=== PATIENT | female | born 1985 | race Hispanic/Latino ===

== ENCOUNTER 2018-08-04 01:11 | Inpatient (IN) | payer OTHER ==
[2018-08-04] MEDS ORDERED: Lactated Ringer's 1,000 ML IV ONE (01:45)
[2018-08-04] MEDS ORDERED: Lactated Ringer's 1,000 ML IV SCH ×3 (01:45→07:58)
[2018-08-04] MEDS ORDERED: Betamethasone Soluspan 30 mg/5mL Inj Susp IM ONE ×2 (01:45→07:58)
[2018-08-04 01:47] VITALS: BMI 31.7
[2018-08-04] MEDS ORDERED: ceFAZolin 2 GM in Sodium Chloride 0.9% 100 ML IVPB ONE (01:52)
[2018-08-04] MEDS ORDERED: Oxytocin 30 UNIT 30 UNITS/500 ML BAG IV ONE (01:52)
[2018-08-04] MEDS ORDERED: OXYTOCIN/0.9 % NS 20 UNIT/1,000 ML BAG IV SCH (02:00)
[2018-08-04 02:04] LABS: BASO # 0.1 K/uL (0.0-0.2); BASO % 0.6 % (0.0-2.0); EOS # 0.2 K/uL (0.0-0.7); EOS % 1.3 % (0.0-4.0); HEMOGLOBIN 13.2 g/dL (12.0-16.0); LYMPH # 2.9 K/uL (1.0-4.3); LYMPH % 20.8 % (20.0-40.0); MEAN CELL VOLUME 90.1 fl (81.0-99.0); MEAN CORPUSCULAR HEMOGLOBIN 30.2 pg (27.0-31.0); MEAN CORPUSCULAR HGB CONC 33.5 g/dL (33.0-37.0); MONO # 0.9 K/uL (0.0-0.8); MONO % 6.2 % (0.0-10.0); NEUT # 9.8 K/uL (1.8-7.0); NEUT % 71.1 % (50.0-75.0); RBC 4.38 Mil/uL (3.80-5.20); RED CELL DISTRIBUTION WIDTH 13.3 % (11.5-14.5); WHITE BLOOD COUNT 13.7 K/uL (4.8-10.8)
[2018-08-04] MEDS ORDERED: Propofol 10 mg/ml Inj (20 ML) ONE (02:11)
[2018-08-04] MEDS ORDERED: Ketamine 50 mg/ml Inj (10 ml) ONE (02:11)
[2018-08-04] MEDS ORDERED: Midazolam 2 MG/2 ML VIAL ONE (02:38)
[2018-08-04] MEDS ORDERED: Succinylcholine Chloride 20 mg/ml Syr (5 ml) IV ONE (02:38)
[2018-08-04] MEDS ORDERED: Morphine 1 mg/ml preservative-free Inj(Duramorph) ONE (02:40)
[2018-08-04] MEDS ORDERED: Rocuronium 10 mg/ml (5 ml) ONE (02:40)
[2018-08-04] MEDS ORDERED: Dexamethasone 4 mg/1 ml ONE (03:02)
[2018-08-04] MEDS ORDERED: Oxycodone/Acetaminophen 5/325 mg Tab PO PRN ×5 (03:23→07:58)
--- NOTE | 2018-08-04 03:34 | OBHP ---
Datetime: 08/04/2018 03:31 IP Adm Impression: , intrauterine IP Admit Plan: Admit to unit; Initiate Section protocol Extremities - PN: Normal Abdomen - PN: Normal Back - PN: Normal Lungs - PN: Normal Heart - PN: Normal Neurologic - PN: Normal General - PN: Normal FHR - Baseline A Provider: 130's Contraction Comments Provider: Q2 Vital Signs Provider: Reviewed IP Indication for Induction: Not Applicable IP Chief Complaint: Vaginal bleeding NICHD Variability Prov Fetus A: Moderate 6-25bpm NICHD Decel Fetus A IP Provider: None Datetime: 08/04/2018 01:55 Admit Comment, IP Provider: 33 y/o , 35.1 wks with HUBERT of 09/07/18 presents to [facility] with vaginal bleeding. Patient reports H/O complete placenta previa and follows up with [facility]. Reports bright red vaginal bleeding started 12.45 AM today and has been bleeding PV since than, Repo rts feeling less FM since than. Unsure about ROM. Denies dizzienss, CP, SOB, F/C/N/V. 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 PE: NAD, VSS Chest: RRR, S1S2 present Lungs: CTAB, No wheezing Abdomen: Gravid, NT PV: Bright red bleeding Ext: No pedal edema A/P: 33 y/o , 35.1 wks with HUBERT of 19 presents to [facility] with vaginal bleeding 2/2 complete placenta previa. EFM and [place] monitoring LR 999 and 125 anesthesia consult stat Type and crossmatch, CBC, HIV, RPR Betamethazone 12 IM STAT Initiate C section protocol Case discussed with Attending Ronni Cronin, PGY1 OB hospitalist Addendum: Pt seen and examined by me. Agree w/ above. 33 yo G1 at 35+1 wks w/ kno wn placenta previa w/ vaginal bleeding. Case discussed w/ Dr. Cox. Pt to be admitted for colleen sally section. Consents obtained for procedure and for possible transfusion. (ES) Pelvic Type - PN: Not Done Breast - PN: Not Done Thyroid - PN: Not Done HEENT - PN: Normal Genitourinary Exam: Abnormal DTRs - PN: Not Done
--- NOTE | 2018-08-04 03:46 | OBDS ---
MATERNAL INFORMATION Provider Comments: Pre-op dx: 33 yo G1 at 35+1 wks w/ placenta previa w/ active bleeding Post-op dx: Same Procedure: Primary low transverse section Surgeon: Ibeth Assistants: Chris Jesus and Ronni Cronin, PGY-1 Anesthesia: GETA Anesthesiologist: Dr. Markos Patel Findings: Viable male infant delivered through anterior placenta in double footling breech present ation. Apgars 8 and 9. Wt 2840 gms, 6#4. Large fundal fibroid and nl appearing tubes and ovaries EBL: 1800mL
[2018-08-04] MEDS ORDERED: HYDROmorphone 0.5 mg/0.5 ml ISec IVP PRN (04:02)
[2018-08-04 04:20] LABS: HEMOGLOBIN 11.5 g/dL (12.0-16.0); MEAN CELL VOLUME 93.1 fl (81.0-99.0); MEAN CORPUSCULAR HEMOGLOBIN 30.2 pg (27.0-31.0); MEAN CORPUSCULAR HGB CONC 32.5 g/dL (33.0-37.0); RBC 3.81 Mil/uL (3.80-5.20); RED CELL DISTRIBUTION WIDTH 12.9 % (11.5-14.5)
[2018-08-04 04:26] LABS: INR 0.9; PROTHROMBIN TIME 10.6 Seconds (9.8-13.1)
[2018-08-04 04:29] LABS: PARTIAL THROMBOPLASTIN TIME 27.3 Seconds (25.6-37.1)
[2018-08-04 05:07] LABS: FDP INTERPRETATION POSITIVE (NEGATIVE); FDP QUANTITY >40 ug/mL (<10)
[2018-08-04 05:10] LABS: FIBRINOGEN 358 mg/dl (200-400)
[2018-08-04] MEDS ORDERED: Simethicone 80 mg Chewtab PO SCH (09:00)
[2018-08-04] MEDS ORDERED: Multivitamin With Minerals Tab PO SCH ×2 (09:00)
[2018-08-04 09:34] LABS: HEMOGLOBIN 11.8 g/dL (12.0-16.0); MEAN CELL VOLUME 92.2 fl (81.0-99.0); MEAN CORPUSCULAR HEMOGLOBIN 30.4 pg (27.0-31.0); RBC 3.87 Mil/uL (3.80-5.20); RED CELL DISTRIBUTION WIDTH 13.3 % (11.5-14.5); WHITE BLOOD COUNT 27.2 K/uL (4.8-10.8)
[2018-08-04] MEDS: Oxycodone/Acetaminophen 5/325 mg Tab PO PRN ×3 (10:25→21:30)
[2018-08-04] MEDS: Multivitamin With Minerals Tab PO SCH (10:28)
[2018-08-04] MEDS: Simethicone 80 mg Chewtab PO SCH ×2 (10:28→17:10)
--- NOTE | 2018-08-04 14:25 | OP ---
PROCEDURE DATE: 08/04/2018 PREOPERATIVE DIAGNOSIS: This is a 33-year-old G1 at 35 weeks and 1 day with placenta previa with active bleeding. POSTOPERATIVE DIAGNOSIS: This is a 33-year-old G1 at 35 weeks and 1 day with placenta previa with active bleeding. PROCEDURE: Primary low transverse section. SURGEON: Joceline Cristina MD SEARCH DIRECTOR: Drs. Jesus and Ronni Cronin PGY-1; Dr. Jesus assisted because there was no qualified resident to be the first sampler with this case. Dr. Jesus was the surgical appliances salesperson and participated in the surgery for the entire duration of the case. He helped create exposure. He also helped maintain hemostasis, operated throughout the case on the side of the patient that was across from him and he assisted in the breech delivery of the by delivering the arms and the head. This case could not have been completed without his assistance. TYPE OF ANESTHESIA: General endotracheal tube anesthesia. ANESTHESIA ADMINISTERED BY: Markos Patel MD. FINDINGS: Viable male delivered through an anterior placenta in double footling breech presentation. Apgars 8 and 9 at one and five minutes respectively. The weight was 2840 g or 6 pounces 4 ounces. Large fundal fibroid noted and normal-appearing tubes and ovaries. ESTIMATED BLOOD LOSS: 1800 mL. DESCRIPTION OF PROCEDURE: The patient was taken to the OR with IV running. She was prepped and draped in normal sterile fashion in the dorsal supine position with a leftward tilt and was then placed under general anesthesia. A Pfannenstiel skin incision was then made with the scalpel and carried through to the underlying layer of fascia with the Bovie. The fascia was incised in the midline and the incision was extended laterally with the Bovie over a Leigh clamp. The inferior aspect of the fascial incision was then grasped with Cricket clamps, elevated, and the underlying rectus muscles were dissected off bluntly with Gallo scissors. Attention was then turned to the superior aspect of this incision, which in a similar fashion was grasped, tented up with the Cricket clamps, and the rectus muscles were dissected off bluntly, and with Gallo scissors. The rectus muscles were then in the midline, the peritoneum was identified, tented up, and entered sharply with Metzenbaum scissors. The peritoneal incision was then extended superiorly and inferiorly with good visualization of the bladder. The bladder blade was then inserted and the vesicouterine peritoneum was identified, grasped with the pickups and entered sharply with the Metzenbaum scissors. The incision was then extended laterally and the bladder flap was created digitally. The bladder blade was then reinserted and the lower uterine segment was incised in transverse fashion with a scalpel. The uterine incision was then extended digitally. The bladder blade was removed. The 's feet were pulled through the incision followed by the legs, the buttocks and the torso and then the arms and then the head. The nose and mouth were suctioned with a bulb suction. The cord was clamped and cut. The was handed off to the awaiting architectural wood model maker. Cord gases were sent. Cord blood was collected. The placenta was then delivered as the uterus was massaged. The uterus was then exteriorized and cleared of all clots and debris with a dry sponge curettage. The uterine incision was then repaired with 0 Vicryl in a running locked fashion. A second layer of the same suture was used in an imbricating fashion for hemostasis and to reinforce the incision. The abdomen was then irrigated and evacuated of clots. The uterus was then returned to the abdomen. The gutters were cleared of all clots. The uterine incision was reexamined and found to be hemostatic. The peritoneum was closed with 2-0 chromic. The rectal muscle was reapproximated with a few interrupted stitches of 0 chromic. The fascia was reapproximated with 0 Vicryl in a running fashion. The subcutaneous fat was irrigated. The Bovie was applied to bleeders. The space of the fat was closed with interrupted stitches of 2-0 plain gut suture. The skin was then closed in a subcuticular fashion with 4-0 Monocryl. The patient tolerated the procedure well. Sponge, lap, and needle counts were correct. The patient had received 2 g of Ancef prior to the procedure. The patient was taken to the recovery room extubated and in stable condition. Joceline Cristina MD [facility] # [id number] MTDFerny
[2018-08-05] MEDS: Simethicone 80 mg Chewtab PO SCH ×5 (01:30→21:50)
[2018-08-05] MEDS: Oxycodone/Acetaminophen 5/325 mg Tab PO PRN ×6 (01:31→21:51)
--- NOTE | 2018-08-05 07:58 | OBPPN ---
Datetime: 08/05/2018 06:08 PP Pain Prov: Within normal limits PP Nausea Prov: Denies PP Flatus Prov: No PP BM Prov: No PP Breasts Prov: Normal PP Heart Prov: Normal PP Lungs Prov: Normal PP Abdomen/Uterus Prov: Normal PP Lochia Prov: Normal PP Vulva/Perineum Prov: Normal PP CVA Tenderness Prov: Normal PP Extremities Prov: Normal PP C/S Incision Prov: Normal PP Impression Prov: Normal progression PP Plan Prov: Continue present management Vital Signs Provider PP: Reviewed; Within Normal Limits Datetime: 08/04/2018 12:26 PP Progress Prov: Not Applicable PP Plan Other Prov: Wants to leave AMA PP Progress Note Prov: S: Patient sitting up comfortably in bed. O: Physical exam: Heart: S1/S2 present, RRR, Lungs clear to auscultation bilaterally, abd: soft no ntender, extremities: no swelling/erythema/tenderness A: 33 y/o s/POD#0 of due to complete placenta previa. Hgb stable at 11.8. Coag jamey dies wnl. P: Patient states that she wants to leave AMA. Patient advised of risks and opted to stay. Case discussed w/ attending, Dr. Ahn. Bernadine Villegas, [facility] OB Hospitalist on-call. I saw this patient when she was considering leaving AMA. Her baby was cristina ng transferred to [facility]. After discussion, she decided that she would stay for continued postop care. RENY
[2018-08-05] MEDS: Multivitamin With Minerals Tab PO SCH (08:14)
--- NOTE | 2018-08-05 12:14 | OBPPN ---
Datetime: 08/05/2018 06:08 PP Progress Note Prov: 33 y/o , S/P Emergency due to placenta previa on 08/04/18. POD1 Patient seen and evaluated at bedside in AM. Patient wanted to leave AMA yesterday since baby is t [facility]ferred to [facility] N[facility]. But decided to stay after counseling. Today reports mild ab dominal pain which is well controlled with medications. Leigh and dressing removed. Pt is using pump to express breast milk. Denies passing flatus or BM. Voiding well w/o difficulties. Tolerating diet w ell PO. Denies any fever, chills, nausea, vomiting, diarrhea, CP, SOB or dizziness. O: Vitally stable GEN: Lying in bed comfortably, NAD Cardio: S1S2, no murmurs, gallops or rubs. Lungs: CTAB, no wheezing, rales Abdomen: BS+, tenderness to palpation. Uterus is firm and at the level of the umbilicus. Incision site C/D/I. EXT: No edema, calves non-tender to palpation Assessment/Plan: 33 y/o , S/P Emergency due to placenta previa on 08/04/18. Pt remains afebrile, tolerating pain with medication, doing well on POD#1. DIC workup WNL. - OOB with caution - SCDs for DVT prophylaxis, encouraged ambulating - Ibuprofen 600 mg for mild pain and Percocet 5/325 mg for mod-severe pain - Simethicone 80 mg Q6hr for flatulence - Senokot tab for constipation. - Continue to encourage breast pumping and ambulating - f/u CBC post op: 11.8/35.7 - Continue present management. -- Ronni Cronin MD PGY-1 The patient was seen with the resident I agree with the note
[2018-08-05] MEDS ORDERED: Pneumococcal 23-Valent Vaccine IM ONE (19:07)
[2018-08-06] MEDS: Oxycodone/Acetaminophen 5/325 mg Tab PO PRN ×3 (01:54→10:16)
[2018-08-06] MEDS: Simethicone 80 mg Chewtab PO SCH (05:03)
[2018-08-06] MEDS ORDERED: Pneumococcal 23-Valent Vaccine IM ONE (09:00)
--- NOTE | 2018-08-06 11:29 | OBDCSUM ---
Datetime: 08/06/2018 11:27 Discharged to, Provider: Home Follow up at, Provider: [facility] office Disch Instr Activity: Normal activity Disch Instr Diet: Regular Discharge Instructions, Provider: Routine instructions given Discharge Diagnosis, Provider: Term Delivered; Placenta Previa Discharge Time: 08/06/2018 11:28 Follow up in weeks, Provider: 1 week Disch Referrals: None Contraception discussed, Prov: Yes Disch Activity Restrictions: No sexual activity; Nothing in vagina - [place], tampons, douche Contraception after Delivery: Undecided
--- NOTE | 2018-08-06 11:30 | OBPPN ---
Datetime: 08/06/2018 11:26 PP Pain Prov: Within normal limits PP Nausea Prov: Denies PP Flatus Prov: Yes PP BM Prov: Yes PP Breasts Prov: Normal PP Heart Prov: Normal PP Lungs Prov: Normal PP Abdomen/Uterus Prov: Normal PP Lochia Prov: Normal PP Vulva/Perineum Prov: Normal PP CVA Tenderness Prov: Normal PP Extremities Prov: Normal PP C/S Incision Prov: Normal PP Progress Prov: Normal PP Comments Phys Exam Prov: Abdomen soft, nontender, nondistended Uterus firm, below umbilicus Incision clean, dry, intact No deep calf tenderness bilaterally PP Impression Prov: Normal progression PP Plan Prov: Discharge PP Progress Note Prov: Postoperative day #2 status post , patient recovering well. Patient requesting discharge home. Discharge patient home with and postoperative instructions and precautions Patient will follow up with PMD in 1 week for incision check IP PP Procedures: None Vital Signs Provider PP: Reviewed; Within Normal Limits
[2018-08-06] MEDS: Multivitamin With Minerals Tab PO SCH (11:47)
[2018-08-06 18:22] VITALS: BP 101/61; PULSE 72; RESP 19; TEMP 98.3; O2SAT 97
== END 2018-08-06 13:17 | disposition home or self-care (01) | DRG 786 ==
LOC: H.EROB2 01:11 → H.L&D 01:50 → H.OB/GYN 08:15
PROVIDERS: ADMIT Obstetrics & Gynecology; ATTEND Obstetrics & Gynecology
PROC: 10D00Z1 Extraction of Products of Conception, Low, Open Approach (ICD-10-PCS; principal; 2018-08-04)
PROC: 4A1HXCZ Monitoring of Products of Conception, Cardiac Rate, External Approach (ICD-10-PCS; 2018-08-04)
DX: O60.14X0 Preterm labor third trimester with preterm delivery third trimester, not applicable or unspecified (principal); O44.13 Complete placenta previa with hemorrhage, third trimester; Z3A.35 35 weeks gestation of pregnancy; Z37.0 Single live birth; O32.8XX0 Maternal care for other malpresentation of fetus, not applicable or unspecified; K59.00 Constipation, unspecified